=== PATIENT | male | born 1950 | race Caucasian/White ===

== ENCOUNTER 2021-04-13 10:02 | Outpatient (CLI) | payer MEDICARE, OTHER ==
--- NOTE | 2021-04-13 10:39 | Ultrasound Report ---
PROCEDURE: Aorta Screening INDICATIONS: SCREENING FOR CARDIOVASCULAR DISEASE, HIST OF SMOK TECHNIQUE: Real time scanning was performed of the aorta and iliac arteries, with image documentatio n. COMPARISON: None. FINDINGS: Aorta: Proximal aortic diameter measures 2.6 x 2.2 cm. Mid-aorta measures 2.2 x 2.2 cm. Distal aor tic diameter is 2.1 x 2.2 cm. Iliac arteries: Right common iliac artery measures 1.2 x 1.4 cm. Left common iliac artery measures 1.3 x 1.3 cm. Calcified plaque noted in the distal abdominal aorta and common iliac arteries. IMPRESSION: Mild atherosclerosis of the distal abdominal aorta and common iliac arteries. No evidence for abdomin al aortic aneurysm. Reviewed by: Iggy Hernández MD on 04/13/2021 10:38 AM PDT Approved by: Iggy Hernández MD on 04/13/2021 10:38 AM PDT Station ID: [id number]
--- NOTE | 2021-04-13 14:25 | CT Report ---
PROCEDURE: Low Dose Lung Cancer Screen INDICATIONS: SCREENING FOR CARDIOVASCULAR DISEASE, HIST OF SMOK TECHNIQUE: Noncontrast low-dose images were acquired from the pulmonary apices to the posterior costophrenic ang les. Multiplanar MIP reformats were then acquired. For radiation dose reduction, the following was used: automated exposure control, adjustment of mA and/or kV according to patient size. COMPARISON: None. FINDINGS: Image quality: Excellent. Lungs and pleura: Nodule 1: Nonspecific pleural-based sub-solid density, lower anterior right upper lobe, image 167/4. Nodule 2:1 mm inferior right middle lobe, image 241/4. Nodule 3:2 mm left upper lobe, image 151/4. Mediastinum: Heart size is normal. No pericardial effusion. No mediastinal adenopathy by size crit eria. Thoracic aorta and central pulmonary arteries are normal in size. Esophagus is normal in john rina. No hiatal hernia. Bones and chest wall: No suspicious bony lesions. No vertebral body compression fractures. No axil elijah or supraclavicular adenopathy by size criteria. Thyroid is unremarkable. Abdomen: Visualized upper abdomen solid organs and bowel loops appear normal in the absence of contr ast. IMPRESSION: 1. LungRads Category 2: Benign appearance or behavior-nodules with a very low likelihood of becoming a clinically active cancer due to size or lack of growth. 3 pulmonary densities, the largest of which is nonspecific sub-solid, measuring 4 mm. 2. Annual follow-up low-dose noncontrast CT of the chest is recommended for lung cancer screening. CLINICAL RECOMMENDATION STATEMENTS: In patients <35 years with an ITN detected on CT, MRI, or extrathyroidal ultrasound, the Committee re commends further evaluation with dedicated thyroid ultrasound if the nodule is "e1 cm and has no susp icious imaging features, and if the patient has normal life expectancy. In patients "e35 years with an ITN detected on CT, MRI, or extrathyroidal ultrasound, the Committee r ecommends further evaluation with dedicated thyroid ultrasound if the nodule is "e1.5 cm and has no s uspicious imaging features, and if the patient has normal life expectancy. (ACR, 2014) Reviewed by: Migel Palma MD on 04/13/2021 2:23 PM PDT Approved by: Migel Palma MD on 04/13/2021 2:23 PM PDT Station ID: [id number]
== END 2021-04-13 10:03 | disposition home or self-care (01) ==
LOC: DI 10:02
PROVIDERS: ATTEND Physician Assistant
DX: Z13.6 Encounter for screening for cardiovascular disorders (principal); Z87.891 Personal history of nicotine dependence; R91.8 Other nonspecific abnormal finding of lung field

== ENCOUNTER 2021-07-16 13:04 | Outpatient (CLI) | payer MEDICARE, OTHER | END 2021-07-16 13:05 | disposition critical access hospital (66) | LOC: EMS 13:04 | DX: S01.01XA Laceration without foreign body of scalp, initial encounter (principal); W00.0XXA Fall on same level due to ice and snow, initial encounter; Y93.01 Activity, walking, marching and hiking; Y92.008 Other place in unspecified non-institutional (private) residence as the place of occurrence of the external cause | CPT/HCPCS: A0425; A0429 ==

== ENCOUNTER 2023-06-02 13:52 | Outpatient (CLI) | payer MEDICARE, OTHER ==
--- NOTE | 2023-06-02 16:55 | CT Report ---
PROCEDURE: Low Dose Lung Cancer Screen INDICATIONS: FORMER SMOKER TECHNIQUE: A CT scan of the chest was performed. Intravenous contrast media was not administered. Images were re corded and evaluated at appropriate window settings. Reformats: axial MIP of the chest, coronal and s agittal. For radiation dose reduction, the following was used: automated exposure control, adjustment of mA and/or kV according to patient size. COMPARISON: None. FINDINGS: Image quality: Excellent. Prior cancer history: Unsure. Lungs and pleura: No pleural effusions. No pneumothorax. No suspicious pulmonary nodules which requi re follow up. Mediastinum: Heart size is normal. No pericardial effusion. No large vessel abnormality. No mediastin al adenopathy by size criteria. One vessel coronary artery calcifications. Chest wall and lower neck: Thyroid is unremarkable. No axillary or supraclavicular adenopathy by size . Bones: No aggressive osseous abnormality. Upper Abdomen: Unremarkable. IMPRESSION: Lung RAD: 1 - Negative. Recommendation: Continue annual screening in 12 Months with LDCT Non-Lung Significant Findings: Mild coronary artery arterial calcification. Reviewed by: Anusha Geiger MD on 06/02/2023 4:54 PM PST Approved by: Anusha Geiger MD on 06/02/2023 4:54 PM PST Station ID: [id number]
== END 2023-06-02 13:53 | disposition home or self-care (01) ==
LOC: DI 13:52
PROVIDERS: ATTEND Physician Assistant
DX: Z12.2 Encounter for screening for malignant neoplasm of respiratory organs (principal); Z87.891 Personal history of nicotine dependence; I25.10 Atherosclerotic heart disease of native coronary artery without angina pectoris

== ENCOUNTER 2023-09-14 08:50 | Outpatient (CLI) | payer MEDICARE, OTHER ==
--- NOTE | 2023-09-14 15:55 | Ultrasound Report ---
PROCEDURE: Bladder INDICATIONS: LUTS TECHNIQUE: Real-time scanning was performed of the kidneys and bladder, with image documentation. COMPARISON: None FINDINGS: Bladder: Pre-void bladder volume is 382 mL. Post-void residual is 158 mL. Pre-void images demonstr ate no intraluminal masses or stones. On pre-void images, bilateral ureteral jets are noted with col or Doppler interrogation. (Of note, ureteral jets may not be detectable in up to 25% of cases due to insufficient differences in specific gravity between ureteral and bladder urine). Miscellaneous: No free pelvic fluid. Enlarged prostate with dystrophic calcifications measuring 5.7 x 5.2 x 5 cm. IMPRESSION: 1.Post void residual volume is 158 mL. 2.Enlarged prostate with dystrophic calcifications measuring 5.7 x 5.2 x 5 cm. Reviewed by: Alber Vale MD on 09/14/2023 3:54 PM PST Approved by: Alber Vale MD on 09/14/2023 3:54 PM PST Station ID: [id number]
== END 2023-09-14 08:51 | disposition home or self-care (01) ==
LOC: DI 08:50
PROVIDERS: ATTEND Physician Assistant
DX: N40.0 Benign prostatic hyperplasia without lower urinary tract symptoms (principal)

== ENCOUNTER 2023-11-22 16:05 | Outpatient (CLI) | payer MEDICARE, OTHER ==
[~2023-11-22 16:05] MED LIST: GADOTERATE MEGLUMINE 10 MMOL/20 ML VIAL ONE
[2023-11-22] MEDS: GADOTERATE MEGLUMINE 10 MMOL/20 ML VIAL IVP ONE (17:14)
--- NOTE | 2023-11-23 11:20 | MRI Report ---
PROCEDURE: Pelvis W/WO INDICATIONS: ELEVATED PSA CONTRAST: 15.6ml Clariscan TECHNIQUE: Coronal ultra fast SE, axial T1 FSE with fat saturation, 3-plane nonbreath-hold T2 FSE. After the ad ministration of contrast, dynamic axial, delayed axial and coronal ultra fast GE or 2-D spoiled GE wi th fat saturation through the pelvis. Restricted diffusion weighted imaging and ADC. COMPARISON: Bladder/prostate ultrasound 09/14/2023. FINDINGS: Image quality: Diffusion weighted and dynamic contrast enhanced images are diagnostic. Prostate: Gland size is 6.6 x 5 x 4.8 cm; ellipsoid gland volume is 82 mL. No significant intrinsic T1 hyperintense foci to suggest hemorrhage. Multiple BPH nodules. Prostate lesions: Lesion 1: Location: Left mid peripheral zone, on axial series 5, image 22 and sagittal series 7, image 17. Size: 0.5 cm. T2W signal: Hypointense DWI signal: Heterogeneous ADC signal: Heterogeneous Enhancement: No Extracapsular extension: No. No neurovascular involvement. PI-RADS score: 3. Genitourinary system: Trabeculated urinary bladder. Distal ureters are non distended. Bowel and peritoneum: No pathologic free pelvic fluid. Inferior colon and small bowel loops are nor mal in caliber. Diverticulosis. Nodes and vessels: No pelvic or inguinal adenopathy by size criteria. Iliac vessels are normal in c aliber. Soft tissues: No inguinal hernias. Bones: Bone marrow demonstrates normal overall signal. No suspicious bony lesions. IMPRESSION: 1. Marked prostatomegaly. Multiple BPH nodules. 2. No PI-RADS 4 or 5 observations. 3. No enlarged lymph nodes. Reviewed by: Mick Castillo MD on 11/23/2023 11:19 AM PDT Approved by: Mick Castillo MD on 11/23/2023 11:19 AM PDT Station ID: [id number]
== END 2023-11-22 16:06 | disposition home or self-care (01) ==
LOC: DI 16:05
PROVIDERS: ATTEND Urology
DX: R97.20 Elevated prostate specific antigen [PSA] (principal); N40.2 Nodular prostate without lower urinary tract symptoms
CPT/HCPCS: 72197; A9575

== ENCOUNTER 2024-01-24 08:00 | Outpatient (CLI) | payer MEDICARE, OTHER | END 2024-01-24 23:59 | disposition home or self-care (01) | LOC: LAB 08:00 | PROVIDERS: ATTEND Urology | DX: R39.9 Unspecified symptoms and signs involving the genitourinary system (principal) | CPT/HCPCS: 87077; 87086; 87181 ==